=== PATIENT | female | born 1990 | race Caucasian/White ===

== ENCOUNTER 2016-04-27 16:13 | Outpatient (CLI) | payer SELFPAY ==
[2016-04-27 17:15] LABS: APPEARANCE,URINE CLEAR; BILIRUBIN,URINE NEGATIVE (NEGATIVE); GLUCOSE, URINE NEGATIVE (NEGATIVE); KETONES,URINE NEGATIVE (NEGATIVE); LEUKOCYTE ESTERASE,URINE NEGATIVE (NEGATIVE); NITRITE,URINE NEGATIVE (NEGATIVE); PROTEIN,URINE NEGATIVE (NEGATIVE)
[2016-04-27 17:39] LABS: URINE BARBITURATES SCREEN NEGATIVE; URINE METHADONE SCREEN NEGATIVE; URINE OPIATES LOW NEGATIVE; URINE PHENCYCLIDINE SCREEN NEGATIVE
[2016-04-27] MEDS ORDERED: HYDROXYZINE PAMOATE 50 MG CAPSULE PO ONE (18:19)
[2016-04-27] MEDS ORDERED: HYDROXYZINE PAMOATE 50 MG CAPSULE ONE (18:27)
== END 2016-04-27 18:31 | disposition home or self-care (01) ==
LOC: LC 16:13
PROVIDERS: ATTEND Obstetrics & Gynecology
PROC: 4A1HXCZ Monitoring of Products of Conception, Cardiac Rate, External Approach (ICD-10-PCS; principal; 2016-04-27)
DX: O47.03 False labor before 37 completed weeks of gestation, third trimester (principal); Z3A.29 29 weeks gestation of pregnancy
CPT/HCPCS: 76815; 80307; 81001

== ENCOUNTER 2016-05-04 14:57 | Outpatient (CLI) | payer SELFPAY ==
[2016-05-04 16:15] LABS: APPEARANCE,URINE CLEAR; BILIRUBIN,URINE NEGATIVE (NEGATIVE); GLUCOSE, URINE NEGATIVE (NEGATIVE); KETONES,URINE NEGATIVE (NEGATIVE); LEUKOCYTE ESTERASE,URINE MODERATE (NEGATIVE); NITRITE,URINE NEGATIVE (NEGATIVE); PROTEIN,URINE NEGATIVE (NEGATIVE); URINE SPECIFIC GRAVITY 1.006; UROBILINOGEN,URINE NEGATIVE mg/dL (<2.0)
[2016-05-04 16:34] LABS: URINE BARBITURATES SCREEN NEGATIVE; URINE METHADONE SCREEN NEGATIVE; URINE OPIATES LOW NEGATIVE; URINE PHENCYCLIDINE SCREEN NEGATIVE
== END 2016-05-04 18:37 | disposition home or self-care (01) ==
LOC: LC 14:57
PROVIDERS: ATTEND Obstetrics & Gynecology
PROC: 4A1HXCZ Monitoring of Products of Conception, Cardiac Rate, External Approach (ICD-10-PCS; principal; 2016-05-04)
DX: O23.43 Unspecified infection of urinary tract in pregnancy, third trimester (principal); Z3A.30 30 weeks gestation of pregnancy
CPT/HCPCS: 76815; 80307; 81001

== ENCOUNTER 2016-05-10 11:21 | Outpatient (CLI) | payer SELFPAY ==
[2016-05-10 11:59] LABS: APPEARANCE,URINE TURBID; BILIRUBIN,URINE NEGATIVE (NEGATIVE); GLUCOSE, URINE NEGATIVE (NEGATIVE); KETONES,URINE NEGATIVE (NEGATIVE); LEUKOCYTE ESTERASE,URINE LARGE (NEGATIVE); NITRITE,URINE NEGATIVE (NEGATIVE); PROTEIN,URINE 100 mg/dL (NEGATIVE); URINE SPECIFIC GRAVITY 1.019; UROBILINOGEN,URINE NEGATIVE mg/dL (<2.0)
[2016-05-10 12:13] LABS: URINE METHADONE SCREEN NEGATIVE; URINE PHENCYCLIDINE SCREEN NEGATIVE
[2016-05-10 12:32] LABS: URINE BARBITURATES SCREEN NEGATIVE
[2016-05-10 12:43] LABS: URINE OPIATES LOW NEGATIVE
[2016-05-10] MEDS ORDERED: CEFAZOLIN 1 GM/D5W RTU 1 GM/50 ML RTUPB IV ONE (14:15)
[2016-05-10] MEDS ORDERED: CEFAZOLIN 1 GM/D5W RTU 1 GM/50 ML RTUPB IV SCH (21:00)
--- NOTE | 2016-05-16 11:53 | L&D Flow Sheet ---
LD Flowsheet Datetime Report Generated by CPN: 05/16/2016 11:53 Datetime: 05/10/2016 15:55 Comments: Monitors removed from abdomen, pt up to RR to change clothes for D/C home. (LETICIA Castillo) Instructional Method: Verbal; Written; Patient Instructed; Verbalized Understanding (LETICIA Castillo) Plan of Care: Plan of Care Discussed (LETICIA Castillo) Medications: Antibiotics (LETICIA Castillo) PTL/PROM: Tocolytics; Hydration (LETICIA Castillo) Related: Common Discomforts of ; Nutrition; Hydration; Activity and Rest (LETICIA Castillo) Teaching Comments: D/C instructions explained to and signed by pt; pt verbalized understanding and agreement with d/c instructions. (LETICIA Castillo) Datetime: 05/10/2016 14:26 Antibiotics: Start Antibiotics; Ancef IV (Gm) @ 1 (Anyi Salo, RNC) Datetime: 05/10/2016 12:56 Comments: Monitors removed from abdomen, pt takem to Radiology for U/S (Anyi Salo, RNC) Datetime: 05/10/2016 12:26 NBP Sys/Belkis/Mean (mmHg): 127 (QS system process) : 90 (QS system process) : 103 (QS system process) Pulse: 98 (QS system process) Datetime: 05/10/2016 11:50 NBP Sys/Belkis/Mean (mmHg): 114 (QS system process) : 70 (QS system process) : 85 (QS system process) Pulse: 91 (QS system process) Pain Scale: 3 (LETICIA Castillo) Pain Presence: Constant (LETICIA Castillo) Pain Type: Stabbing (LETICIA Castillo) Pain Location: Back; Right Flank (LETICIA Castillo) Level of Consciousness: Fully Conscious (LETICIA Castillo) DTR's/Clonus: DTRs 2+; No Clonus (LETICIA Castillo) Headache: Denies (LETICIA Castillo) Breath Sounds, Left: Clear and Equal (LETICIA Castillo) Breath Sounds, Right: Clear and Equal (Anyi Leong RNBlaine) Nausea/Vomiting: Denies (LETICIA Castillo) RUQ Epigastric Pain: Denies (LETICIA Castillo) Instructional Method: Verbal; Family/Support Person Instructed (LETICIA Castillo) Plan of Care: Plan of Care Discussed; Labor (LETICIA Castillo) Unit Routine: [place] to Room; Call Li; Bed; Monitoring; Bathroom Privileges (LETICIA Castillo) PTL/PROM: Tocolytics; PTL Stimulating Activities; Hydration; Signs/Symptoms of Infection (LETICIA Castillo) Related: Common Discomforts of ; Maternal Physical Changes; Maternal Emotional Changes; Hydration; Activity and Rest (LETICIA Castillo) Datetime: 05/10/2016 11:48 IV/Blood Work: IV Started; IV Bolus Started (LETICIA Castillo)
--- NOTE | 2016-05-16 11:53 | L&D General Admission ---
General Admit Datetime Report Generated by CPN: 05/16/2016 11:53 INFORMATION Patient Age: 25 (04/27/2016 16:14:QS system process) EDC: 07/13/2016 00:00 (04/27/2016 16:30:Krystina Contreras RN) : 6 (04/27/2016 16:30:Krystina Contreras RN) Para: 4 (04/27/2016 16:30:Tsering Plummer RN) Term: 2 (04/27/2016 16:30:Krystina Contreras RN) : 3 (04/27/2016 16:30:Krystina Contreras RN) Spontaneous Abortions: 1 (04/27/2016 16:30:Krystina Contreras RN) Induced Abortions: 0 (04/27/2016 16:30:Krystina Contreras RN) Livin (04/27/2016 16:30:Krystina Contreras RN) Cesareans: 0 (04/27/2016 16:30:Krystina Contreras RN) VBACs: 0 (04/27/2016 16:30:Krystina Contreras RN) Ectopic: 0 (04/27/2016 16:30:Krystina Contreras RN) Multiple Births: 0 (04/27/2016 16:30:Krystina Contreras RN) Baby, Number in Womb: 1 (04/27/2016 16:30:Krystina Contreras RN) CARE Primary Merchandise Execution Leader: Other-Annotate (04/27/2016 16:30:Krystina Contreras RN) Merchandise Execution Leader Other: [facility] (04/27/2016 16:30:Krystina Contreras RN) Height (in): 63 (05/10/2016 11:42:QS system process) Height (in): 63 (05/04/2016 17:54:QS system process) Height (in): 63 (05/04/2016 16:23:QS system process) Height (in): 63 (05/04/2016 16:00:QS system process) Height (in): 63 (04/27/2016 17:18:QS system process) Height (in): 63 (04/27/2016 17:12:QS system process) ALLERGIES Medication Allergy: No (04/27/2016 16:30:Krystina Contreras RN) Medication Allergies: No Known Allergies (05/10/2016) (05/10/2016 11:40:QS system process) Medication Allergies: No Known Allergies (04/27/2016) (04/27/2016 17:11:QS system process) Latex Allergy: No Latex Allergies (04/27/2016 16:30:Krystina Contreras RN) COMMUNICATION Primary Language: Surinamese (04/27/2016 16:30:Krystina Contreras RN) Medical Tx Preferred Language: Surinamese (04/27/2016 16:30:Krystina Contreras RN) Communication Barrier(s): None (04/27/2016 16:30:Tsering Plummer RN) DEMOGRAPHICS Address: [address] [place] [address], [address] [address] (04/27/2016 16:14:QS system process) Zipcode: [address] (04/27/2016 16:14:QS system process) Home (04/27/2016 16:14:QS system process) SSN: [id number] (04/27/2016 16:14:QS system process) Next of Kin Name: SOSA MIX (04/27/2016 16:14:QS system process) Next of Kin (04/27/2016 16:14:QS system process) Next of Kin Relationship: OR (04/27/2016 16:14:QS system process) Date of : 1990 (04/27/2016 16:14:QS system process) Marital Status: (04/27/2016 16:14:QS system process) Sex: Female (04/27/2016 16:14:QS system process) Race: (04/27/2016 16:14:QS system process) Ethnicity: Non- or (04/27/2016 16:14:QS system process) Orthodoxy: None (04/27/2016 16:14:QS system process) DRUG AND ALCOHOL USE Alcohol: No (04/27/2016 16:30:Krystina Contreras RN) Cigarettes: Former Smoker. [id number] (04/27/2016 16:30:Krystina Contreras RN) Marijuana: No (04/27/2016 16:30:Krystina Contreras RN) Cocaine: No (04/27/2016 16:30:Krystina Contreras RN) Other Illicit Drugs: No (04/27/2016 16:30:Krystina Contreras RN) VACCINE HISTORY Influenza Vaccine: No (04/27/2016 16:30:Krystina Contreras RN) Pneumococcal Vaccine: No (04/27/2016 16:30:Krystina Contreras RN) Tetanus Vaccine: No (04/27/2016 16:30:Krystina Contreras RN) Tdap Vaccine: No (04/27/2016 16:30:Krystina Contreras RN) Hepatitis B Vaccine: No (04/27/2016 16:30:Krystina Contreras RN) Feeding Preference: Breast (04/27/2016 16:30:Krystina Contreras RN) Benefit of Breast Feed Discussed: Yes (04/27/2016 16:30:Krystina Contreras RN) Classes Attended: No (04/27/2016 16:30:Krystina Contreras RN) Support Person: Arie Don III (04/27/2016 16:30:Krystina Contreras RN) Support Person Relationship: (04/27/2016 16:30:Krystina Contreras RN) Cultural/Spritual Practice: No (04/27/2016 16:30:Krystina Contreras RN) Spir/Cult Dietary Needs: No (04/27/2016 16:30:Krystina Contreras RN) LIVING SITUATION/DISCHARGE PLAN Living Arrangements: House (04/27/2016 16:30:Krystina Contreras RN) Adequate Access to:: Electric; Heat; Refrigeration; Plumbing/Running water; Phone; Transportation (04/27/2016 16:30:Krystina Contreras RN) WIC Program: Needs referral (04/27/2016 16:30:Krystina Contreras RN) Adoption Requested: No (04/27/2016 16:30:Krystina Contreras RN) Pt Contact w/ Post : N/A (04/27/2016 16:30:Krystina Contreras RN) LABS Blood Type: O Positive (04/27/2016 16:30:LETICIA Castillo) Antibody Screen: Negative (04/27/2016 16:30:LETICIA Castillo) Gonorrhea: Negative (04/27/2016 16:30:LETICIA Castillo) Chlamydia: Negative (04/27/2016 16:30:LETICIA Castillo) RPR/VDRL: Nonreactive (04/27/2016 16:30:LETICIA Castillo) HIV Exposure Test: Negative (04/27/2016 16:30:LETICIA Castillo) Hepatitis B: Negative (04/27/2016 16:30:LETICIA Castillo) Rubella: Immune (04/27/2016 16:30:LETICIA Castillo) Varicella: Non Susceptible (04/27/2016 16:30:LETICIA Castillo) OB/PREVIOUS HISTORY Previous Procedures: Ultrasound; NST (04/27/2016 16:30:Krystina Contreras RN) Current Procedures: Ultrasound; NST (04/27/2016 16:30:Krystina Contreras RN) History of Previous : No (04/27/2016 16:30:Krystina Contreras RN) History of Gestational Diabetes: No (04/27/2016 16:30:Krystina Contreras RN) History of PIH: No (04/27/2016 16:30:Krystina Contreras RN) History of Incompetent Cervix: No (04/27/2016 16:30:Krystina Contreras RN) History of Placenta Previa/Abrup: No (04/27/2016 16:30:Krystina Contreras RN) History of Macrosomia: No (04/27/2016 16:30:Krystina Contreras RN) History of IUGR: No (04/27/2016 16:30:Krystina Contreras RN) History of Hemorrhage: No (04/27/2016 16:30:Krystina Contreras RN) History of Loss/Stillborn: No (04/27/2016 16:30:Krystina Contreras RN) History of : No (04/27/2016 16:30:Krystina Contreras RN) History of D (Rh) Sensitization: No (04/27/2016 16:30:Krystina Contreras RN) History Recurrent Loss/Stillborn: No (04/27/2016 16:30:Krystina Contreras RN) History Depression/PP Depression: Yes (04/27/2016 16:30:Krystina Contreras RN) History of Uterine Anomaly/GEN: No (04/27/2016 16:30:Krystina Contreras RN) History of Infertility: No (04/27/2016 16:30:Krystina Contreras RN) History of ART Treatment: No (04/27/2016 16:30:Krystina Contreras RN) History of GEN: No (04/27/2016 16:30:Krystina Contreras RN) Comments Obstetrical History: G1: 2011 G2: 2013 , twins 35 weeks G3: 2013 G4: 2014 , 33 weeks G5: 2016 SAB 9 weeks G6: current (04/27/2016 16:30:Krystina Contreras RN) MEDICAL HISTORY Med Hx Diabetes: No (04/27/2016 16:30:Krystina Contreras RN) Med Hx Hypertension: No (04/27/2016 16:30:Krystina Contreras RN) Med Hx Heart Disease: No (04/27/2016 16:30:Krystina Contreras RN) Med Hx Autoimmune Disorder: No (04/27/2016 16:30:Krystina Contreras RN) Med Hx Kidney Disease/UTI: Yes (04/27/2016 16:30:Krystina Contreras RN) Med Hx Neurologic/Epilepsy: No (04/27/2016 16:30:Krystina Contreras RN) Med Hx Psychiatric Disorders: No (04/27/2016 16:30:Krystina Contreras RN) Med Hx Hepatitis/Liver Disease: No (04/27/2016 16:30:Krystina Contreras, RN) Med Hx Varicosities/Phlebitis: No (04/27/2016 16:30:Krystina Contreras RN) Med Hx Thyroid Dysfunction: No (04/27/2016 16:30:Krystina Contreras RN) Med Hx Trauma/Violence: No (04/27/2016 16:30:Krystina Contreras RN) Med Hx Blood Transfusion: No (04/27/2016 16:30:Krystina Contreras RN) Med Hx Pulmonary (Asthma,TB): No (04/27/2016 16:30:Krystina Contreras RN) Med Hx Breast: No (04/27/2016 16:30:Krystina Contreras RN) Med Hx PHYSICS INSTRUCTOR Surgery: No (04/27/2016 16:30:Krystina Contreras RN) Med Hx Hospitalization/Surgery: Yes (04/27/2016 16:30:Krystina Contreras RN) Med Hx Anesthetic Complications: No (04/27/2016 16:30:Krystina Contreras RN) Med Hx Abnormal Pap Smear: No (04/27/2016 16:30:Krystina Contreras RN) Other Medical Diseases: No (04/27/2016 16:30:Krystina Contreras RN) Med Hx Significant Family Hx: No (04/27/2016 16:30:Krystina Contreras RN) Details of Med/Surg Hx: depression on xanax and zoloft, 12 years old kidney failure (04/27/2016 16:30:Krystina Contreras RN) INFECTIOUS HISTORY Inf Hx Gonorrhea: No (04/27/2016 16:30:Krystina Contreras RN) Inf Hx Chlamydia: No (04/27/2016 16:30:Krystina Contreras RN) Inf Hx Syphilis: No (04/27/2016 16:30:Krystina Contreras RN) Inf Hx HIV/AIDS: No (04/27/2016 16:30:Krystina Contreras RN) Inf Hx Human Papilloma Virus: No (04/27/2016 16:30:Krystina Contreras RN) Inf Hx Pt/Partner Genital Herpes: No (04/27/2016 16:30:Krystina Contreras RN) Inf Hx Tuberculosis/Exposure: No (04/27/2016 16:30:Krystina Contreras RN) Inf Hx Hepatitis B,C: No (04/27/2016 16:30:Krystina Contreras RN) Inf Hx Rash or Viral Illness: No (04/27/2016 16:30:Krystina Contreras RN) GENETIC HISTORY Gen Hx Age >=35 at JASIEL: No (04/27/2016 16:30:Krystina Contreras RN) Gen Hx Thalassemia: No (04/27/2016 16:30:Krystina Contreras RN) Gen Hx Congenital Heart Defect: No (04/27/2016 16:30:Krystina Contreras RN) Gen Hx Neural Tube Defect: No (04/27/2016 16:30:Krystina Contreras RN) Gen Hx Down's Syndrome: No (04/27/2016 16:30:Krystina Contreras RN) Gen Hx Braeden-Sachs: No (04/27/2016 16:30:Krystina Contreras RN) Gen Hx Jesica: No (04/27/2016 16:30:Krystina Contreras RN) Gen Hx Familial Dysautonomia: No (04/27/2016 16:30:Krystina Contreras RN) Gen Hx Sickle Cell Disease/Trait: No (04/27/2016 16:30:Krystina Contreras RN) Gen Hx Hemophilia/Blood Disorder: No (04/27/2016 16:30:Krystina Contreras RN) Gen Hx Muscular Dystrophy: No (04/27/2016 16:30:Krystina Contreras RN) Gen Hx Cystic Fibrosis: No (04/27/2016 16:30:Krystina Contreras RN) Gen Hx [place] Chorea: No (04/27/2016 16:30:Krystina Contreras RN) Gen Hx Mental Retardation/Autism: Yes (04/27/2016 16:30:Krystina Contreras RN) Gen Hx Tested for Fragile X: No (04/27/2016 16:30:Krystina Contreras RN) Gen Hx Other Inher/Chromosomal: No (04/27/2016 16:30:Krystina Contreras RN) Gen Hx Maternal Metabolic DO: No (04/27/2016 16:30:Krystina Contreras RN) Gen Hx Pt Father or FOB Defect: No (04/27/2016 16:30:Krystina Contreras RN) Gen Hx Other Genetic History: No (04/27/2016 16:30:Krystina Contreras RN) Gen Hx Drugs/Meds since LMP: Yes (04/27/2016 16:30:Krystina Contreras RN) Gen Hx Medications: PNV, Progesterone (04/27/2016 16:30:Krystina Contreras RN) Details of Genetic History: Cousin autistic, son borderline autistic (04/27/2016 16:30:Krystina Contreras RN)
--- NOTE | 2016-05-16 11:53 | Antepartum Discharge Summary ---
Antepartum DC Datetime Report Generated by CPN: 05/16/2016 11:52 Diet: Regular (05/10/2016 16:14:LETICIA Castillo) Activity: Normal Activity (05/10/2016 16:14:LETICIA Castillo) Instructions Given To: Patient (05/10/2016 16:14:LETICIA Castillo) Instructions Understood: Patient Verbalized Understanding (05/10/2016 16:14:LETICIA Castillo) Referrals: None (05/10/2016 16:14:LETICIA Castillo) Educational Materials- Other: UTI (05/10/2016 16:14:LETICIA Castillo) Discharged AMA: No (05/10/2016 16:14:LETICIA Castillo) Discharge Date/Time: 05/10/2016 16:00 (05/10/2016 16:14:LETICIA Castillo) Discharged To: Home (05/10/2016 16:14:LETICIA Castillo) Discharge Provider Name: Dr. Gómez (05/10/2016 16:14:LETICIA Castillo) Accompanied By: N/A (05/10/2016 16:14:LETICIA Castillo) Discharge Method: Ambulatory (05/10/2016 16:14:LETICIA Castillo) Condition: Stable (05/10/2016 16:14:LETICIA Castillo) Follow Up With: Health Department (05/10/2016 16:14:LETICIA Castillo) Follow Up On: As Scheduled (05/10/2016 16:14:LETICIA Castillo) Follow Up Phone Number: Health Department - (05/10/2016 16:14:LETICIA Castillo) Comments: Pt physically left L_D ambulatory with water jug and d/c instructions in hand. (05/10/2016 16:14:LETICIA Castillo)
--- NOTE | 2016-05-16 11:54 | L&D Discharge Summary ---
OB Discharge Summary Datetime Report Generated by CPN: 05/16/2016 11:54 DISCHARGE DIAGNOSIS Diagnosis/Symptoms: UTI; Urinary Tract Infection Diagnoses/Symptoms Other: IUP at 30.6 weeks, appropriate for gestational age tracing, UTI Gestation: 30.6 Number of Babies in Womb: 1 Parity: 4 DIET/ACTIVITY/RESTRICTIONS Diet: Regular Activity: Normal Activity TEACHING/INSTRUCTIONS/REFERRALS Instructions Given To: Patient Instructions Understood: Patient Verbalized Understanding Referrals: None Educational Materials- Other: UTI DISCHARGE INFORMATION Discharged AMA: No Discharge Date/Time: 05/10/2016 16:00 Discharged To: Home Discharge Provider Name: Dr. Gómez Accompanied By: N/A Discharge Method: Ambulatory Condition: Stable FOLLOW UP INFORMATION Follow Up With: Health Department Follow Up On: As Scheduled Follow Up Phone Number: Health Department - Comments: Pt physically left L_D ambulatory with water jug and d/c instructions in hand.
== END 2016-05-10 16:00 | disposition home or self-care (01) ==
LOC: LC 11:21
PROVIDERS: ATTEND Specialist
PROC: 4A1HXCZ Monitoring of Products of Conception, Cardiac Rate, External Approach (ICD-10-PCS; principal; 2016-05-10)
DX: O23.43 Unspecified infection of urinary tract in pregnancy, third trimester (principal); Z3A.30 30 weeks gestation of pregnancy
CPT/HCPCS: 59899; 87086; 81001; 80307; 76815; J0690

== ENCOUNTER 2016-06-07 14:35 | Outpatient (CLI) | payer MEDICAID ==
[2016-06-07 15:21] LABS: APPEARANCE,URINE SLIGHTLY-CLOUDY; BILIRUBIN,URINE NEGATIVE (NEGATIVE); GLUCOSE, URINE NEGATIVE (NEGATIVE); KETONES,URINE NEGATIVE (NEGATIVE); LEUKOCYTE ESTERASE,URINE SMALL (NEGATIVE); NITRITE,URINE NEGATIVE (NEGATIVE); PROTEIN,URINE NEGATIVE (NEGATIVE); URINE SPECIFIC GRAVITY 1.014
[2016-06-07 15:38] LABS: URINE BARBITURATES SCREEN NEGATIVE; URINE METHADONE SCREEN NEGATIVE; URINE OPIATES LOW NEGATIVE; URINE PHENCYCLIDINE SCREEN NEGATIVE
== END 2016-06-07 15:52 | disposition home or self-care (01) ==
LOC: LC 14:35
PROVIDERS: ATTEND Obstetrics & Gynecology
PROC: 4A1HXCZ Monitoring of Products of Conception, Cardiac Rate, External Approach (ICD-10-PCS; principal; 2016-06-07)
DX: O26.893 Other specified pregnancy related conditions, third trimester (principal); Z3A.34 34 weeks gestation of pregnancy; R42 Dizziness and giddiness; R10.9 Unspecified abdominal pain
CPT/HCPCS: 80307; 81001

== ENCOUNTER 2016-06-17 04:39 | Inpatient (IN) | payer MEDICAID ==
[2016-06-17] MEDS ORDERED: LIDOCAINE 1% INJ-PF (10 MG/ML) 30 ML SDV ONE (04:53)
[2016-06-17] MEDS ORDERED: MISOPROSTOL 0.2 MG TABLET ONE (04:53)
[2016-06-17] MEDS ORDERED: OXYTOCIN/NORMAL SALINE 0 UNIT/0 ML RTUINJ ONE (04:53)
[2016-06-17] MEDS ORDERED: OXYTOCIN 10 UNIT/ML VIAL ONE (04:56)
[2016-06-17] MEDS ORDERED: ACETAMINOPHEN WITH CODEINE #3 TABLET ONE (05:16)
[2016-06-17] MEDS ORDERED: DIBUCAINE 1% OINTMENT 28 GM TP PRN (05:58)
[2016-06-17] MEDS ORDERED: GLYCERIN/WITCH HAZEL LEAF 1 EACH MED..PAD TP PRN (05:58)
[2016-06-17] MEDS ORDERED: ACETAMINOPHEN 650 MG SUPP.RECT PR PRN (05:58)
[2016-06-17] MEDS ORDERED: DIPH/PERTUSS(ACELL)/TETANUS VAC/PF 0.5 ML SYR (>=10YO) IM PRN (05:58)
[2016-06-17] MEDS ORDERED: MAGNESIUM HYDROXIDE SUSP 30 ML UDCUP PO PRN (05:58)
[2016-06-17] MEDS ORDERED: OXYTOCIN/NORMAL SALINE 1,000 ML IV PRN (05:58)
[2016-06-17] MEDS ORDERED: PROMETHAZINE HCL 25 MG SUPP.RECT PR PRN (05:58)
[2016-06-17] MEDS ORDERED: ACETAMINOPHEN WITH CODEINE #3 TABLET PO PRN (05:58)
[2016-06-17] MEDS ORDERED: PROMETHAZINE HCL INJ 25 MG/1 ML VIAL IV PRN (05:58)
[2016-06-17] MEDS ORDERED: MEASLES,MUMPS&RUBELLA VACC/PF 0.5 ML VIAL SUBCUT PRN (05:58)
[2016-06-17] MEDS ORDERED: PROMETHAZINE HCL 25 MG TABLET PO PRN (05:58)
[2016-06-17] MEDS ORDERED: NA PHOS,M-B/NA PHOS,DI-BA (ADULT) 133 ML ENEMA PR PRN (05:58)
[2016-06-17] MEDS ORDERED: BENZOCAINE/MENTHOL AEROSOL SPRAY 56 ML TOP PRN (05:58)
[2016-06-17] MEDS ORDERED: PSEUDOEPHEDRINE HCL 30 MG TABLET PO PRN (05:58)
[2016-06-17] MEDS ORDERED: DIPHENHYDRAMINE HCL 25 MG CAPSULE PO PRN (05:58)
[2016-06-17] MEDS ORDERED: ZOLPIDEM TARTRATE 5 MG TABLET PO PRN (05:58)
[2016-06-17] MEDS ORDERED: IBUPROFEN 800 MG TABLET ONE (06:23)
[2016-06-17] MEDS: IBUPROFEN 800 MG TABLET PO SCH ×3 (06:24→22:24)
[2016-06-17 06:25] LABS: ABSOLUTE MONOCYTES (AUTO) 0.6 10^3/uL (0.1-1.4); BASOPHILS % (AUTO) 0.3 % (0-2); EOSINOPHILS % (AUTO) 0.2 % (0-6); HEMATOCRIT 33.9 % (36.0-47.0); HEMOGLOBIN 11.6 g/dL (12.0-15.5); HGB HCT DIFFERENCE 0.9; LYMPHOCYTES % (AUTO) 9.3 % (13-45); MEAN CORPUSCULAR HEMOGLOBIN 28.7 pg (27.0-33.4); MEAN CORPUSCULAR HGB CONC 34.1 g/dL (32.0-36.0); MEAN CORPUSCULAR VOLUME 84 fl (80-97); RED BLOOD COUNT 4.03 10^6/uL (3.72-5.28); RED CELL DISTRIBUTION WIDTH 14.5 % (11.5-14.0); SEGMENTED NEUTROPHILS % (AUTO) 84.2 % (42-78); WHITE BLOOD COUNT 10.6 10^3/uL (4.0-10.5)
--- NOTE | 2016-06-17 06:48 | Delivery Summary ---
Del Sum A-C Datetime Report Generated by CPN: 06/17/2016 06:47 DELIVERY PERSONNEL DELIVERY PERSONNEL: [phone] Delivery Doctor:: Devon Weeks, Labor and Delivery Nurse:: Esperanza Mcdonnell RN Labor and Delivery Nurse:: Yaritza Garcia RN Nursery Nurse:: Cee Lawrence RN Cold Meat Chef/ROLLER CLEANER: Rosario Christensenr, BOILER HOUSE SUPERVISOR MATERNAL INFORMATION Delivery Anesthesia: None Medications After Delivery: Other-Please Comment Meds After Delivery Comment: 20 units IM pitocin Estimated Blood Loss (ml): 250 Maternal Complications: Precipitous Labor (<3hrs); Abruptio Placenta Other Maternal Complications: Questionable placental abruption; limited care Provider Comments: of viable female in CANELO position Placenta deleivered spontaneous and intact with 3v cord Fundus firm LABOR SUMMARY EDC: 07/13/2016 00:00 No. Babies in Womb: 1 Attempted: No Labor Anesthesia: None LABOR INFORMATION Reason for Induction: Not Applicable Onset of Labor: 06/17/2016 03:45 Complete Dilatation: 06/17/2016 04:48 Oxytocin: N/A Group B Beta Strep: unknown Antibiotics # of Doses: 0 Steroids Given: None Reason Steroids Not Administered: Not Applicable MEMBRANES Membranes Rupture Method: Artificial Rupture of Membranes: 06/17/2016 04:58 Length of Rupture (hr): 0.08 Amniotic Fluid Color: Clear Amniotic Fluid Amount: Small Amniotic Fluid Odor: Normal STAGES OF LABOR Stage 1 hr: 1 Stage 1 min: 3 Stage 2 hr: 0 Stage 2 min: 15 Stage 3 hr: 0 Stage 3 min: 3 Total Time in Labor hr: 1 Total Time in Labor min: 21 VAGINAL DELIVERY Episiotomy: None Laceration Extension: N/A Laceration Type: None Laceration Repair: Not Applicable Sponge Count Correct: N/A Sharps Count Correct: Yes CSECTION DELIVERY Primary Indication: N/A Secondary Indication: N/A CSection Urgency: N/A CSection Incidence: N/A Labor: N/A Elective: N/A CSection Incision: N/A BABY A INFORMATION Infant Delivery Date/Time: 06/17/2016 05:03 Method of Delivery: Vaginal Born in Route : No : N/A Forceps: N/A Vacuum Extraction: N/A Shoulder Dystocia : No PRESENTATION/POSITION BABY A Presentation: Cephalic Cephalic Presentation: Vertex Vertex Position: Right Occipital Anterior Breech Presentation: N/A PLACENTA INFORMATION BABY A Placenta Delivery Time : 06/17/2016 05:06 Placenta Method of Delivery: Spontaneous Placenta Status: Delivered SCORES BABY A Heart Rate 1 min: >100 bpm Resp Effort 1 min: Good Cry Reflex Irritability 1 min: Cough or Sneeze or Pulls Away Muscle Tone 1 min: Active Motion Color 1 min: Blue/Pale Resuscitation Effort 1 min: Tactile Stimulation SCORE 1 MIN: 8 Heart Rate 5 min: >100 bpm Resp Effort 5 min: Good Cry Reflex Irritability 5 min: Cough or Sneeze or Pulls Away Muscle Tone 5 min: Active Motion Color 5 min: Body [place], Extremities Blue Resuscitation Effort 5 min: Tactile Stimulation SCORE 5 MIN: 9 INFORMATION BABY A Gestational Age at Delivery: 36.2 Gestational Status: Late - 34- 36.6 Weeks Infant Outcome : Liveborn Condition : Stable Sex: Female IDENTIFICATION BABY A Verification Date/Time: 06/17/2016 05:22 ID Band Number: [id number] Mother's Name Verified: Yes Infant RN Verifying : Alexey Garcia RN/ [place] RN WEIGHT/LENGTH BABY A Birthweight (gm): 2360 Infant Weight (lb): 5 Infant Weight (oz): 3 Length (in): 19.00 Length (cm): 48.26 CORD INFORMATION BABY A No. Cord Vessels: 3 Nuchal Cord : N/A Cord Blood Taken: Yes-For Eval (Mom's Blood Type - or O+) Infant Suction: Mouth ASSESSMENT BABY A Complications: None Physical Findings at Delivery: Other Physical Findings- Other: see nursery notes Infant Respirations: Appears Normal Skin to Skin: Yes Crystal Growing Technician/ALS Called : No Infant Care By: Cee Lawrence RN/ Alexey Garcia RN Transferred To: Remains with Mother BABY B INFORMATION : N/A SIGNATURES Signature: with User ID: [email or web address]
--- NOTE | 2016-06-17 07:46 | Admission Physical ---
Datetime Report Generated by CPN: 06/17/2016 07:46 CURRENT ADMISSION Chief Complaint: Uterine Contractions Indication for Induction: Not Applicable Admit Plan: Admit to Unit; Initiate Labor Protocol ALLERGIES Medication Allergies: No Medication Allergies: No Known Allergies (06/07/2016) Medication Allergies: No Known Allergies (05/10/2016) Medication Allergies: No Known Allergies (04/27/2016) Latex: No Latex Allergies OBSTETRICAL HISTORY EDC: 07/13/2016 00:00 : 6 Para: 4 Term: 2 : 3 SAB: 1 IAB: 0 Ectopic: 0 Livin Cesareans: 0 VBACs: 0 Multiple Births: 0 Gestational Diabetes: No Rh Sensitization: No Incompetent Cervix: No GEN: No Infertility: No ART Treatment: No Uterine Anomaly: No IUGR: No Hx Previous C/S: No Macrosomia: No Hx Loss/Stillborn: No PIH: No Hx : No Placenta Previa/Abruption: No Depression/PP Depression: Yes PTL/PROM: Yes Post Hemorrhage: No Current Procedures: Ultrasound; NST Obstetrical History Comments: G1: 2011 G2: 2012 , twins 35 weeks G3: 2013 G4: 2014 , 33 weeks G5: 2015 SAB 9 weeks G6: current SEE RECORDS Alcohol: No Marijuana : No Cocaine: No Other Illicit Drugs: No Cigarettes: Former Smoker. [id number] MEDICAL HISTORY Diabetes: No Blood Transfusion: No Pulmonary Disease (Asthma, TB): No Breast Disease: No Hypertension: No City Jailer Surgery: No Heart Disease: No Hosp/Surgery: Yes Autoimmune Disorder: No Anesthetic Complications: No Kidney Disease: Yes Abnormal Pap Smear: No Neuro/Epilepsy: No Psychiatric Disorders: No Other Medical Diseases: No Hepatitis/Liver Disease: No Significant Family History: No Varicosities/Phlebitis: No Trauma/Violence : No Thyroid Dysfunction: No Medical History Comments: depression on xanax and zoloft, 12 years old kidney failure INFECTIOUS HISTORY Gonorrhea: No Genital Herpes: No Chlamydia: No Tuberculosis: No Syphilis: No Hepatitis: No HIV/AIDS Exposure: No Rash or Viral Illness: No HPV: No PHYSICAL EXAM General: Normal HEENT: Normal Neurologic: Normal Thyroid: Deferred Heart: Normal Lungs: Normal Breast: Deferred Back: Normal Abdomen: Normal Genitourinary Exam: Normal Extremities: Normal DTRs: Normal Pelvic Type: Adequate Vital Signs: Reviewed; Within Normal Limits VAGINAL EXAM Dilatation: 10 Effacement: 100 Station: 0 MEMBRANES Membranes: Intact FETUS A EGA: 36.2 Monitoring: External US FHR- Baseline: 140 Variability: Moderate 6-25bpm Accelerations: 15X15 Decelerations: None FHR Category: Category I Presentation: Vertex PLANS FOR LABOR AND DELIVERY Labor and Delivery: None Pain Management: None Feeding Preference: Both Benefit of Breast Feed Discussed: Yes Circumcision: N/A INFORMED CONSENT Signature: with User ID: [email or web address]
[2016-06-17] MEDS: FAMOTIDINE 20 MG TABLET PO SCH ×2 (09:15→22:24)
[2016-06-17] MEDS: FERROUS SULFATE 325 MG TABLET PO SCH ×2 (09:15→17:59)
[2016-06-17] MEDS: PRENATAL VITAMIN W-O CA NO5/FE FUMARATE/FA CAPSULE PO SCH (09:15)
[2016-06-17] MEDS: ACETAMINOPHEN WITH CODEINE #3 TABLET PO PRN ×3 (09:59→20:40)
[2016-06-17] MEDS: DOCUSATE SODIUM 100 MG CAPSULE PO SCH ×2 (17:02→17:59)
[2016-06-17] MEDS: SENNOSIDES/DOCUSATE 8.6-50 MG 1 EACH TABLET PO SCH (17:02)
[2016-06-18] MEDS: IBUPROFEN 800 MG TABLET PO SCH ×3 (06:00→21:52)
[2016-06-18 06:41] LABS: HEMATOCRIT 34.1 % (36.0-47.0); HEMOGLOBIN 11.4 g/dL (12.0-15.5); HGB HCT DIFFERENCE 0.1; MEAN CORPUSCULAR HEMOGLOBIN 28.3 pg (27.0-33.4); MEAN CORPUSCULAR HGB CONC 33.5 g/dL (32.0-36.0); MEAN CORPUSCULAR VOLUME 85 fl (80-97); RED BLOOD COUNT 4.03 10^6/uL (3.72-5.28); RED CELL DISTRIBUTION WIDTH 14.7 % (11.5-14.0); WHITE BLOOD COUNT 7.3 10^3/uL (4.0-10.5)
--- NOTE | 2016-06-18 09:18 | PDOC PROGRESS REPORT ---
Subjective-OB Subjective: Post Delivery Day: 1 25 year old. Denies any needs at this time, states pain is well controlled, voiding without difficulty, lochia is stable, tolerating diet, bonding well with baby. Physical Exam (OB) Vital Signs: Temp Pulse Resp BP Pulse Ox 97.6 F 69 14 109/65 100 06/18/16 08:12 06/18/16 08:12 06/18/16 08:12 06/18/16 08:12 06/18/16 08:12 - PIH/Pre-Eclampsia Clonus: Negative Headache: Absent Epigastric Pain: No Visual Changes: No - Lochia Lochia Amount: Scant < 10 ml Lochia Color: Rubra/Red - Abdomen Description: Soft Hernia Present: No Fundal Description: Firm Fundal Height: u/u - u/2 Objective-Diagnostic Laboratory: 06/18/16 06:08 06/18/16 06:08 WBC 7.3 RBC 4.03 Hgb 11.4 L Hct 34.1 L MCV 85 MCH 28.3 MCHC 33.5 RDW 14.7 H Plt Count 155 Assessment and Plan(PN) - Assessment and Plan (1) Vaginal delivery Is this a current diagnosis for this admission?: YesPlan: routine care - Time Spent with Patient Time with patient: Less than 15 minutes Critical Time spent with patient: Less than 15 minutes Medications reviewed and adjusted accordingly: Yes - Disposition Anticipated Discharge: Home Within: within 24 hours
[2016-06-18] MEDS: FAMOTIDINE 20 MG TABLET PO SCH ×2 (10:19→21:54)
[2016-06-18] MEDS: DOCUSATE SODIUM 100 MG CAPSULE PO SCH ×2 (10:19→18:24)
[2016-06-18] MEDS: SENNOSIDES/DOCUSATE 8.6-50 MG 1 EACH TABLET PO SCH (10:19)
[2016-06-18] MEDS: FERROUS SULFATE 325 MG TABLET PO SCH ×2 (10:19→18:25)
[2016-06-18] MEDS: PRENATAL VITAMIN W-O CA NO5/FE FUMARATE/FA CAPSULE PO SCH (10:19)
[2016-06-18] MEDS: ACETAMINOPHEN WITH CODEINE #3 TABLET PO PRN ×2 (15:17→23:11)
[2016-06-19] MEDS: IBUPROFEN 800 MG TABLET PO SCH (06:23)
[2016-06-19 09:09] VITALS: BP 112/67
[2016-06-19] MEDS: DOCUSATE SODIUM 100 MG CAPSULE PO SCH (09:21)
[2016-06-19] MEDS: PRENATAL VITAMIN W-O CA NO5/FE FUMARATE/FA CAPSULE PO SCH (09:21)
[2016-06-19] MEDS: FAMOTIDINE 20 MG TABLET PO SCH (09:21)
[2016-06-19] MEDS: SENNOSIDES/DOCUSATE 8.6-50 MG 1 EACH TABLET PO SCH (09:22)
[2016-06-19] MEDS: FERROUS SULFATE 325 MG TABLET PO SCH (09:22)
--- NOTE | 2016-06-19 09:37 | PDOC DISCHARGE SUMMARY ---
Final Diagnosis Discharge Date: 06/19/16 - Final Diagnosis (1) Vaginal delivery Is this a current diagnosis for this admission?: Yes Discharge Data - Discharge Medication Home Medications: Vit/Iron Fumarate/FA [ Tablet] 1 tab PO DAILY 06/07/16 Acetaminophen with Codeine [Tylenol #3 Tablet] 2 each PO Q4HP PRN #14 tablet Docusate Sodium [Colace 100 mg Capsule] 100 mg PO BID #60 capsule 06/19/16 Ibuprofen [Motrin 800 mg Tablet] 800 mg PO Q8 #60 tablet 06/19/16 Gestational Age: 36.2 Reason(s) for Admission: Onset of Labor Procedures: NST Intrapartum Procedure(s): Spontaneous Vaginal Delivery - Data Baby 1 Female at 1 minute: 8 at 5 minutes: 9 Weight: 2360 kg Home with Mother: Yes Complications: No - Diagnosis Test Laboratory: Temp Pulse Resp BP Pulse Ox 98.1 F 73 18 112/67 99 06/19/16 08:39 06/19/16 08:39 06/19/16 08:39 06/19/16 08:39 06/19/16 08:39 06/17/16 06/18/16 06:09 06:08 RBC 4.03 4.03 Hgb 11.6 L 11.4 L Hct 33.9 L 34.1 L - Discharge information/Instructions Discharge Activity: Activity As Tolerated, Pelvic Rest, No tub bath Discharge Diet: Regular Disposition: HOME, SELF-CARE Follow [facility] with: [facility] in: 4, Weeks
== END 2016-06-19 11:09 | disposition home or self-care (01) | DRG 774 ==
LOC: LC 04:39 → LR 04:55 → 2N 07:44
PROVIDERS: ADMIT Obstetrics & Gynecology; ATTEND Obstetrics & Gynecology
PROC: 10E0XZZ Delivery of Products of Conception, External Approach (ICD-10-PCS; principal; 2016-06-17)
PROC: 10907ZC Drainage of Amniotic Fluid, Therapeutic from Products of Conception, Via Natural or Artificial Opening (ICD-10-PCS; 2016-06-17)
PROC: 4A1HXCZ Monitoring of Products of Conception, Cardiac Rate, External Approach (ICD-10-PCS; 2016-06-17)
DX: O60.14X0 Preterm labor third trimester with preterm delivery third trimester, not applicable or unspecified (principal); O45.93 Premature separation of placenta, unspecified, third trimester; O99.344 Other mental disorders complicating childbirth; F32.9 Major depressive disorder, single episode, unspecified; O62.3 Precipitate labor; Z87.891 Personal history of nicotine dependence; Z3A.36 36 weeks gestation of pregnancy; Z37.0 Single live birth
CPT/HCPCS: 36415; 85025; 85027; 86592; 86850; 86900; 86901; 88307; J2590; J3490

== ENCOUNTER 2016-06-26 15:16 | Emergency (ER) | payer MEDICAID ==
[2016-06-26] MEDS ORDERED: DIPH/PERTUSS(ACELL)/TETANUS VAC/PF 0.5 ML SYR (>=10YO) IM ONE (15:52)
--- NOTE | 2016-06-26 16:01 | ER Document Report ---
HPI - HPI Patient complains to provider of: laceration left arm Onset: This morning Onset/Duration: Sudden Quality of pain: Other - sore Severity: Mild Pain Level: 2 Context: Patient presents emergency department with complaints of laceration to her left upper arm. She reports she scraped her arm on a screw while she was helping somebody move. She does not know when her last tetanus was. No active bleeding. She cleaned the area and applied Neosporin. Associated Symptoms: None Exacerbated by: Denies Relieved by: Denies Similar symptoms previously: No Recently seen / treated by doctor: No - DERM Skin Color: Normal Past Medical History - General Information source: Patient Last Menstrual Period: post - Social History Smoking Status: Unknown if Ever Smoked Cigarette use (# per day): No Frequency of alcohol use: None Drug Abuse: None Lives with: Family Family History: None Patient has suicidal ideation: No Patient has homicidal ideation: No - Medical History Medical History: Negative Renal/ Medical History: Denies: Hx Peritoneal Dialysis Surgical Hx: Negative Vertical Provider Document - CONSTITUTIONAL Agree With Documented VS: Yes Exam Limitations: No Limitations General Appearance: WD/WN, No Apparent Distress - INFECTION CONTROL TRAVEL OUTSIDE OF THE [place] IN LAST 30 DAYS: No - HEENT HEENT: Atraumatic, Normocephalic - NECK Neck: Supple - RESPIRATORY Respiratory: No Respiratory Distress O2 Sat by Pulse Oximetry: 98 - MUSCULOSKELETAL/EXTREMETIES Musculoskeletal/Extremeties: MAEW, FROM, Non-Tender - NEURO Level of Consciousness: Awake, Alert, Appropriate Motor/Sensory: No Motor Deficit - DERM Integumentary: Warm, Dry, Laceration - 1 cm horizontal laceration superficial, no active bleeding to left deltoid area Adult Front & Back Diagram: 1 - 1 cm lac Course - Re-evaluation Re-evalutation: 06/26/16 Fairly well Steri-Strips applied. Patient was instructed on signs and symptoms of infection. She verbalized understanding to all instructions - Vital Signs Vital signs: Temp Pulse Resp BP Pulse Ox 97.9 F 56 L 16 108/64 98 06/26/16 15:44 06/26/16 15:44 06/26/16 15:44 06/26/16 15:44 06/26/16 15:44 Discharge - Discharge Clinical Impression: Laceration Condition: Stable Disposition: HOME, SELF-CARE Instructions: Care of Steri-Strip Closure (COUNTS INCLUDE 234 BEDS AT THE [facility]), Tetanus Immunization Given ( COUNTS INCLUDE 234 BEDS AT THE [facility]) Additional Instructions: *You have been treated for a laceration with steri strip repair *Take tylenol as indicated *Monitor the site for signs of infection such as increasing pain, redness, swelling, warmth *Follow up with a primary care provider within one week for recheck *Return to ED for signs of infection, worsening condition, changes, needs
[2016-06-26 16:29] VITALS: BP 120/72
== END 2016-06-26 16:29 | disposition home or self-care (01) ==
LOC: ER 15:16
PROC: 3E0234Z Introduction of Serum, Toxoid and Vaccine into Muscle, Percutaneous Approach (ICD-10-PCS; principal; 2016-06-26)
DX: S41.112A Laceration without foreign body of left upper arm, initial encounter (principal); W26.8XXA Contact with other sharp object(s), not elsewhere classified, initial encounter; Y93.E6 Activity, residential relocation
CPT/HCPCS: 90471; 90715; 99282

== ENCOUNTER 2016-07-19 22:53 | Emergency (ER) | payer MEDICAID ==
[2016-07-19 23:07] VITALS: BP 112/70
== END 2016-07-20 01:21 | disposition left against medical advice (07) ==
LOC: ER 22:53
DX: Z53.21 Procedure and treatment not carried out due to patient leaving prior to being seen by health care provider (principal)